=== PATIENT | male | born 1955 | race Caucasian/White ===

== ENCOUNTER → 2016-09-16 | Outpatient (CLI) | payer BC ==
--- NOTE | 2016-09-16 22:18 | CT ---
EXAMINATION TYPE: CT angio chest DATE OF EXAM: 09/16/2016 6:59 PM COMPARISON: 09/15/2015 HISTORY: 60-year-old male follow-up thoracic aneurysm TECHNIQUE: Contiguous axial scanning of the chest performed without and with IV Contrast, patient inj ected with 100 mL of Omnipaque 350. Coronal/sagittal MIP reconstructions performed. 3-D reconstructio ns generated on a dedicated independent workstation. CT DLP: 1107.3 mGycm Automated exposure control for dose reduction was used. FINDINGS: The heart is normal size without pericardial effusion. Redemonstrated ascending aortic aneurysm at 4.3 cm measured on both coronal and axial series. The pre vious finding described to represent an intimal flap along the medial ascending aortic wall is redemo nstrated and is suspected to represent wall motion artifact. The upper descending thoracic aorta rafa ins mildly aneurysmal at 3.3 cm and the lower descending thoracic aorta is ectatic at 2.7 cm. There i s variant direct takeoff of the nondominant left vertebral artery directly from the aortic arch. No thoracic lymphadenopathy by CT size criteria. Incidental mild bilateral gynecomastia. There is mild diffuse bronchial wall thickening demonstrated that could represent bronchitis or chron ic asthma. Some hazy atelectasis at the left base. No consolidation or pleural effusion. Tiny hiatal hernia. Stable couple cysts measuring up to 1.4 cm in the left hepatic dome. Dominant 4.9 cm cyst segment 4 left liver lobe. Additional smaller cysts are present and remain unchanged. Bones: No osseous destructive process. IMPRESSION: 1. STABLE ANEURYSMAL THORACIC AORTA (4.3 CM ASCENDING AND 3.3 CM UPPER DESCENDING). 2. THE PREVIOUS FINDING DESCRIBED TO REPRESENT AN INTIMAL FLAP ALONG THE MEDIAL ASCENDING AORTIC WALL IS REDEMONSTRATED BUT IS SUSPECTED TO REPRESENT WALL MOTION ARTIFACT. CONSID[facility].
== END | disposition home or self-care (01) ==
LOC: RADCTMAIN 18:06
PROVIDERS: ATTEND Thoracic Surgery (Cardiothoracic Vascular Surgery)
DX: I71.2 Thoracic aortic aneurysm, without rupture (principal)
CPT/HCPCS: 71275; Q9967

== ENCOUNTER → 2017-01-04 | Outpatient (CLI) | payer BC | END | disposition home or self-care (01) | LOC: LABWHC1 10:17 | PROVIDERS: ATTEND Internal Medicine Interventional Cardiology | DX: E03.9 Hypothyroidism, unspecified (principal) | CPT/HCPCS: 36415; 84439; 84443 ==

== ENCOUNTER → 2017-09-03 | Outpatient (CLI) | payer BC ==
[2017-09-03 17:48] LABS: HCT 44.7 % (39.0-53.0); HGB 15.3 gm/dL (13.0-17.5); MCH 30.5 pg (25.0-35.0); MCHC 34.2 g/dL (31.0-37.0); MCV 89.2 fL (80.0-100.0); Mean Platelet Volume 7.2; Platelet Count 213 k/uL (150-450); RBC 5.02 m/uL (4.30-5.90); RDW 12.4 % (11.5-15.5); WBC 6.8 k/uL (3.8-10.6)
[2017-09-03 17:58] LABS: Anion Gap 16 mmol/L; Blood Urea Nitrogen 18 mg/dL (9-20); Carbon Dioxide 30 mmol/L (22-30); Chloride 102 mmol/L (98-107); Potassium 4.6 mmol/L (3.5-5.1); Sodium 148 mmol/L (137-145)
== END | disposition home or self-care (01) ==
LOC: LABPAT 17:28
PROVIDERS: ATTEND Internal Medicine Interventional Cardiology
DX: Z01.812 Encounter for preprocedural laboratory examination (principal); R94.30 Abnormal result of cardiovascular function study, unspecified
CPT/HCPCS: 36415; 80051; 82565; 84520; 85027

== ENCOUNTER → 2017-09-16 | Outpatient (CLI) | payer BC ==
--- NOTE | 2017-09-16 09:15 | US ---
EXAMINATION TYPE: US abdomen complete DATE OF EXAM: 09/16/2017 COMPARISON: CT aorta 2014 CLINICAL HISTORY: Q44.6 CYSTIC DISEASE OF LIVER. Pt states liver cyst visualized on MRI done at [facility] ([facility] facility EXAM MEASUREMENTS: Liver Length: 11.0 cm Gallbladder Wall: 0.2 cm CBD: 0.8 cm Spleen: 9.2 cm Right Kidney: 12.3 x 5.6 x 5.4 cm Left Kidney: 10.8 x 6.2 x 5.7 cm Pancreas: Obscured by bowel gas Liver: Heterogeneous, difficult to penetrate, multiple cystic lesions scattered throughout, largest in left lobe= 5.8 x 4.3 x 5.7 cm, largest in right lobe= 2.8 x 1.9 x 2.9 cm Gallbladder: Possible 4mm polyp posterior wall. No shadowing mobile gallstones. Evidence for sonographic You's sign: No CBD: ?dilated Spleen: Visualized portions appeared wnl Right Kidney: wnl Left Kidney: wnl Upper IVC: wnl Abd Aorta: wnl The visualized liver is heterogeneously hyperechoic. Evaluation for focal masses is suboptimal due to the heterogeneity. A thin-walled 5.8 cm cyst in left hepatic lobe is redemonstrated not significantl y changed from prior CT. A smaller 2.8 cm thin-walled cyst right hepatic lobe is noted likely corresp onds to CT axial image 56 The intrahepatic portion of the IVC and visualized abdominal aorta are with in normal limits. There is no evidence of shadowing mobile cholelithiasis. Common bile duct is mini rome dilated. No suspicious intrahepatic biliary dilatation is seen. The pancreas is suboptimally e valuated on images saved secondary to shadowing from overlying bowel gas per technologist. The splee n is unremarkable. Kidneys are symmetric and free of hydronephrosis. No renal lesions are seen. IMPRESSION: Diffuse fatty infiltration of liver with simple thin-walled cysts in the liver redemonstr ated.
== END | disposition home or self-care (01) ==
LOC: RADUSWWP 08:09
PROVIDERS: ATTEND Internal Medicine
DX: K76.0 Fatty (change of) liver, not elsewhere classified (principal); K76.89 Other specified diseases of liver
CPT/HCPCS: 76700

== ENCOUNTER → 2017-09-19 | Day surgery (SDC) | payer BC ==
[2017-09-16 09:17] VITALS: BMI 30.9
[~2017-09-19] MED LIST: ALPRAZolam 0.25 MG TAB PO PRN; ALPRAZolam 0.5 MG TAB PO PRN; ASPIRIN 325 MG TAB PO STA; HEPARIN SODIUM 1,000 UN/ML (10ML VL) IV ONE; HEPARIN SODIUM 1,000 UN/ML (10ML VL) ONE; IOPAMIDOL-300 50ML BTL INJ ONE; IOPAMIDOL-370 100ML BTL INJ ONE; LIDOCAINE 2% INJ 20 MG/ML (20 ML MDV) ONE; LIDOCAINE 2% INJ 20 MG/ML SQ ONE; MIDAZOLAM 2 MG/2 ML VIAL ONE; NITROGLYCERIN SL TABS 0.4 MG TAB SUBLINGUAL PRN; SODIUM CHLORIDE 0.9% 1,000 ML in EMPTY BAG 1 BAG IV ONE; VERAPAMIL 2.5 MG/ML 2 ML AMP ONE; diphenhydrAMINE 50 MG/ML 1 ML VIAL IVP ONE; diphenhydrAMINE 50 MG/ML 1 ML VIAL ONE
[2017-09-19 10:20] VITALS: RESP 18; TEMP 98.2
[2017-09-19] MEDS: MIDAZOLAM 2 MG/2 ML VIAL IV ONE ×2 (11:46→12:09)
[2017-09-19] MEDS: VERAPAMIL SYRINGE (5 MG/10 ML) INTRAARTER ONE ×2 (11:51→12:21)
[2017-09-19 14:27] LABS: ALT 33 U/L (21-72); AST 28 U/L (17-59); Cholesterol 105 mg/dL (<200); Creatine Kinase 127 U/L (55-170); HDL Cholesterol 31 mg/dL (40-60); LDL Cholesterol,Calculated 54 mg/dL (0-99); Triglycerides 101 mg/dL (<150)
--- NOTE | 2017-09-19 15:02 | CC ---
CARDIAC CATHETERIZATION REPORT DATE OF SERVICE: 09/19/2017. PROCEDURE: Left heart catheterization, coronary angiography and left ventriculography. PERFORMED BY: Dr. Elli Ochoa. CLINICAL INFORMATION: Mr. 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 He has a 4.2 cm ascending aortic dilatation. This is being followed noninvasively. Because of his symptoms and abnormal stress test. He was advised coronary angiography. Risks, benefits, options, rationale were explained to the patient. PROCEDURE NOTE: Under local anesthesia and strict aseptic precautions, a 6-Prydeinig introducer was placed in the right radial artery. Using an Ultimate I catheter I performed selective coronary angiography of the left system. Using a right Justen catheter, I performed selective injection of the right coronary artery, but the injections were somewhat suboptimal. This was a nondominant vessel. I also tried with a Jaime catheter, but overall right coronary angiography was selective, but the tip appears to be a very limited distribution, nondominant vessel. An LV-gram was performed using a multipurpose B2 catheter with a hand injection. LV pressures were checked. The sheath was then taken out and a TR band applied as per protocol with good hemostasis. Saturation in the fingers of the right hand was 94%. Patient tolerated procedure well without complications. ANESTHESIA: Moderate conscious sedation time was 39 minutes. Patient was given Versed, Benadryl and his oxygen saturation, EKG and hemodynamics were monitored closely. CARDIAC CATHETERIZATION FINDINGS: The left ventricular end-diastolic pressure was 8-10 mmHg without any gradient across aortic valve. LEFT VENTRICULOGRAM: Hand ejection was performed. Ejection fraction appears to be 60% without any wall motion abnormalities. LEFT MAIN CORONARY ARTERY: A very short patent vessel that is free of significant disease that immediately bifurcates into LAD and circumflex. LEFT ANTERIOR DESCENDING CORONARY ARTERY: This vessel has a smooth narrowing of about 40%-45% in the midportion. Before this narrowing, there are small septal branches that come off. Then there is a large diagonal branch after this 45% narrowing and distal diagonal branch is free of significant disease. LAD runs all the way to the apex giving off several branches. No other significant disease is noted. Proximal LAD technically/mid LAD has about a 40% to 45% narrowing which is smooth and best seen in both caudal as well as cranial projections. LEFT POSTERIOR CIRCUMFLEX CORONARY ARTERY: Technically a very dominant vessel, gives off a first obtuse marginal, which is large, runs laterally, has no significant disease. It appears that the second obtuse marginal may be occluded. There appears to be a stump that seems to come off from the circumflex artery. Not much antegrade flow is noted but in multiple views, it does look like there may be a stump where a second obtuse marginal would have cross. The distal continuation of the circumflex continues as a PDA branch which is free of significant disease. A small PLV is also noted which is free of significant disease. PDA is large, disease-free and circumflex has no other significant disease other than probable occlusion of a second obtuse marginal/PLV branch. Stump is seen, but very little antegrade flow is noted. RIGHT CORONARY ARTERY: Technically a nondominant vessel, small in caliber and distribution, has a limited amount of myocardium being supplied by it, appears to be a nondominant vessel. FINAL IMPRESSION: This patient has a left dominant system, probable occlusion of the obtuse marginal which is a flush occlusion. This also runs in the PLV distribution. PDA is free of significant disease. No other disease in the circumflex system. Mid/proximal LAD has about a 45% smooth narrowing. Ejection fraction is normal with a hand injection. Filling pressures are normal. RECOMMENDATION: I am recommending aggressive medical therapy with risk factor modification. Will increase the atorvastatin to 20 mg daily and he will be discharged later on today and I will see him in the office next week. Aggressive medical therapy with risk factor modification is being advised and he also has ascending aortic dilatation. This will be addressed by CT angiography in the next couple of weeks. MMODL / IJN: [id number] /
--- NOTE | 2017-09-19 15:08 | LTR ---
DATE OF SERVICE: 09/19/2017 RE: KempJeremi Dear Dr. Marshall; Thank you for the opportuity to participate in the care of Mr. Jeremi Gupta. Please find enclosed my detailed cardiac cath report for your records. This gentleman probably has an occlusion of obtuse marginal, but no other critical lesions are noted. He has a moderate 40% to 45% LAD lesion and diffuse irregularities in the circumflex and nondominant RCA. No intervention is necessary. Aggressive medical therapy with LDL goal of under 70 and dietary discretion exercise is advised. I will see the patient in a week. Procedure was performed uneventfully. Thank you for your referral and please call for questions. With kindest regards. Sincerely yours, MD FILIBERTO Aburto / AMORN: [id number] /
[2017-09-19 18:36] VITALS: BP 104/58; PULSE 50
--- NOTE | 2017-09-20 14:26 | ECHOF ---
Referral Reason:R/O VALVE DX MEASUREMENTS -------- HEIGHT: 182.9 cm WEIGHT: 106.1 kg BP: 129/83 IVSd: 1.1 cm (0.6 - 1.1) LVIDd: 5.0 cm (3.9 - 5.3) LVPWd: 1.2 cm (0.6 - 1.1) IVSs: 1.5 cm LVIDs: 3.6 cm LVPWs: 1.5 cm LA Diam: 4.0 cm (2.7 - 3.8) LAESV Index (A-L): 25.27 ml/m Ao Diam: 3.7 cm (2.0 - 3.7) AV Cusp: 2.6 cm (1.5 - 2.6) LA Diam: 4.7 cm (2.7 - 3.8) MV EXCURSION: 17.961 mm (> 18.000) MV EF SLOPE: 77 mm/s (70 - 150) EPSS: 0.9 cm MV E Ramesh: 0.40 m/s MV DecT: 402 ms MV A Ramesh: 0.66 m/s MV E/A Ratio: 0.61 AR PHT: 859 ms RAP: 5.00 mmHg RVSP: 14.95 mmHg FINDINGS -------- Sinus rhythm. This was a technically good study. The left ventricular size is normal. Overall left ventricular systolic function is normal with, an EF between 55 - 60 %. The right ventricle is normal in size. The left atrial size is normal. Normal LA size by volume 22+/-6 ml/m2. The right atrial size is normal. Trace to mild aortic regurgitation. Mild mitral regurgitation is present. Mild tricuspid regurgitation present. There is no evidence of pulmonary hypertension. The right v entricular systolic pressure, as measured by Doppler, is 14.95mmHg. There is no pulmonic regurgitation present. The aortic root size is normal. There is no pericardial effusion. CONCLUSIONS -------- 1. The left ventricular size is normal. 2. Overall left ventricular systolic function is normal with, an EF between 55 - 60 %. 3. Trace to mild aortic regurgitation. 4. Mild mitral regurgitation is present. 5. Mild tricuspid regurgitation present. 6. There is no evidence of pulmonary hypertension. 7. The right ventricular systolic pressure, as measured by Doppler, is 14.95mmHg. 8. There is no pulmonic regurgitation present. 9. The aortic root size is normal. 10. There is no pericardial effusion. END POLISHER: Jamia Kilgore RDCS
== END ==
LOC: CATHCVL 09:13
PROVIDERS: ATTEND Internal Medicine Interventional Cardiology
DX: I25.10 Atherosclerotic heart disease of native coronary artery without angina pectoris (principal); I08.3 Combined rheumatic disorders of mitral, aortic and tricuspid valves; I10 Essential (primary) hypertension; I49.5 Sick sinus syndrome; Z82.49 Family history of ischemic heart disease and other diseases of the circulatory system; Z79.1 Long term (current) use of non-steroidal anti-inflammatories (NSAID); Z79.899 Other long term (current) drug therapy
CPT/HCPCS: 93306; 93458; 80061; 82550; 84450; 84460; C1894; J2001; J2250; J1200; J1644; Q9967 ×2

== ENCOUNTER → 2017-10-03 | Outpatient (CLI) | payer BC ==
--- NOTE | 2017-10-04 10:52 | CT ---
EXAMINATION TYPE: CT soft tissue neck w con DATE OF EXAM: 10/03/2017 7:10 PM COMPARISON: Prior CT neck 02/04/2013 HISTORY: Lt sided neck pain. Dysphagia, chronic sinusitis. Possible parotid stone CT DLP: 769.1 mGycm Automated exposure control for dose reduction was used. CONTRAST: CT scan of the neck is performed following with IV Contrast, patient injected with 100 mL of Isovue 3 00. Axial images are obtained, coronal and sagittal reformatted images are reviewed. FINDINGS: Airway: No gross abnormality seen. Parotid/submandibular glands: There is calcification present in the region of the submandibular gran uloma on the left measuring approximately 8-9 by 5 mm, additional calcification is present more perip herally measuring 2 to 3 mm seen best on axial images 69 and 68. Sublingual gland on the left is some what amorphous as compared to the right with some fatty replacement noted just deep to the mandible, there may be congenital anomaly and/or postinflammatory change with distortion of normal anatomy. Carotid/Vascular Structures: Ascending aorta is aneurysmal measuring approximately 4.2 cm, descending aorta is also ectatic at 3 cm. Four-vessel arch is present. The left vertebral artery is diminutive. Right vertebral artery is dominant. Super aortic branch vessels are patent. Osseous Structures: Degenerative disc changes are present within the visualized cervical spine as not ed on prior exam Other: Thyroid within normal limits. Dental amalgam causes streak artifact over portions of the exam IMPRESSION: Submandibular gland calcifications and distortion as described. Thoracic aortic aneurysm. Degenerative disc disease.
== END | disposition home or self-care (01) ==
LOC: RADCTMAIN 18:40
PROVIDERS: ATTEND Otolaryngology
DX: M50.30 Other cervical disc degeneration, unspecified cervical region (principal); R13.10 Dysphagia, unspecified
CPT/HCPCS: 70491; Q9967

== ENCOUNTER → 2018-06-23 | Outpatient (CLI) | payer OTHER | END | disposition home or self-care (01) | LOC: LABWHC1 11:07 | PROVIDERS: ATTEND Otolaryngology | DX: E83.52 Hypercalcemia (principal) | CPT/HCPCS: 36415; 82306; 82330 ==

== ENCOUNTER → 2018-12-11 | Outpatient (CLI) | payer OTHER ==
--- NOTE | 2018-12-11 08:06 | CT ---
EXAMINATION TYPE: CT angio chest DATE OF EXAM: 12/11/2018 COMPARISON: 09/16/2016 HISTORY: Thoracic Aortic aneurysm CT DLP: 542.8 mGycm CONTRAST: CTA thoracic aorta with 3-D reconstruction is performed and with IV Contrast, patient injected with 1 00 mL of Isovue 370. Contrast CTA of the thoracic aorta was performed from the lung apex through the upper abdomen. 3D re construction imaging obtained at a separate workstation. CT Chest: THORACIC AORTA: Ascending thoracic aortic aneurysm measuring 4.2 cm AP dimension versus 4.3 cm previo usly. Mild atheromatous changes seen. There is no evidence for dissection or periaortic collection. LUNGS: The lungs are clear and free of infiltrate or atelectasis. No pulmonary nodule or mass is det ected. No pleural effusion or CT evidence of interstitial lung disease. MEDIASTINUM: No evidence for mediastinal hematoma. The heart is not enlarged. No evidence for med iastinal mass or adenopathy. HILAR STRUCTURES: No evidence for mass. No hilar adenopathy is appreciated. OTHER: No significant abnormality. IMPRESSION- Stable ascending thoracic aortic aneurysm.
== END | disposition home or self-care (01) ==
LOC: RADCTMAIN 06:58
PROVIDERS: ATTEND Internal Medicine Interventional Cardiology
DX: I71.2 Thoracic aortic aneurysm, without rupture (principal)
CPT/HCPCS: 71275; Q9967

== ENCOUNTER → 2019-12-15 | Outpatient (CLI) | payer OTHER ==
--- NOTE | 2019-12-15 18:00 | CT ---
EXAMINATION TYPE: CT angio chest DATE OF EXAM: 12/15/2019 5:19 PM COMPARISON: CTA chest 12/01/2018 HISTORY: f/u aneurysm CT DLP: 622.5 mGycm Automated exposure control for dose reduction was used. CONTRAST: CTA scan of the thorax is performed with IV Contrast, patient injected with 100 mL of Isovue 370, tho racic aortic aneurysm protocol. 3D reconstructed images are created on an independent workstation an d reviewed.. FINDINGS: LUNGS: The lungs are grossly clear, there is no concerning parenchymal mass or nodule identified. Th ere is no pleural effusion or pneumothorax seen. The tracheobronchial tree is patent. MEDIASTINUM: There is satisfactory enhancement of the thoracic aorta. There is redemonstrated 4.2 cm ascending thoracic aortic aneurysm. No evidence of thoracic aortic dissection cardiac size normal. No pericardial effusion. No evidence of mediastinal or hilar adenopathy. OTHER: Multiple hepatic simple cysts redemonstrated. No adrenal adenoma. IMPRESSION: UNCHANGED 4.2 CM ASCENDING THORACIC AORTIC ANEURYSM.
== END | disposition home or self-care (01) ==
LOC: RADCTMAIN 16:17
PROVIDERS: ATTEND Internal Medicine Interventional Cardiology
DX: I71.2 Thoracic aortic aneurysm, without rupture (principal)
CPT/HCPCS: 71275

== ENCOUNTER → 2021-05-23 | Outpatient (CLI) | payer MEDICARE, OTHER ==
--- NOTE | 2021-05-23 12:39 | CT ---
CT CHEST FOR PULMONARY EMBOLISM. EXAMINATION TYPE: CT angio chest DATE OF EXAM: 05/23/2021 INDICATION: thoracic aortic aneurysm, w/o rupture CT DLP: 937.6 mGycm, Automated exposure control for dose reduction was used. CONTRAST: Patient injected with 100 mL of Isovue 370. COMPARISON: 12/15/2019 TECHNIQUE: CT of the chest is performed on a spiral scan at 2 mm thick sections. Study is performed with intravenous contrast timed for evaluation for thoracic aneurysm.. This will limit additional po rtions of the evaluation. 3-D MIP images reconstructed by the technologist are reviewed on the compu ter in the coronal and sagittal planes. FINDINGS: No persistent filling defects are evident to suggest an acute pulmonary embolism. No mediastinal or hilar adenopathy enlarged by CT criteria is evident. The ascending aorta diameter at the level of the main pulmonary artery is 4.3 cm. The main pulmonary artery diameter at the bifur cation is 2.8 cm. There is an ascending thoracic aortic aneurysm measuring 4.3 cm of the main pulmona ry artery. The aorta otherwise tapers throughout its visualized course. This appears stable within me asurement error from comparison study. There is a tiny posterior left midlung density measuring 0.4 cm. Series 7 image 26. Lung windows othe rwise appear clear. Limited CT section through the upper abdomen. Hepatic cysts within the medial right lobe liver are pr esent IMPRESSIONS: 1. Stable appearance of ascending thoracic aorta with a measurement of 4.3 cm. 2. Tiny posterior left lung density is nonspecific but is a change from comparison. Follow-up exam in 6 months is recommended.
== END | disposition home or self-care (01) ==
LOC: RADCTMAIN 09:18
PROVIDERS: ATTEND Internal Medicine Interventional Cardiology
DX: I71.2 Thoracic aortic aneurysm, without rupture (principal); J98.4 Other disorders of lung
CPT/HCPCS: 82565; 84520; 71275; 36415; Q9967

== ENCOUNTER → 2022-04-30 | Outpatient (CLI) | payer MEDICARE, OTHER ==
[2022-04-30 12:52] LABS: African American GFR (CKD) >90 (>60 ml/min/1.73 sqM); Blood Urea Nitrogen 20 mg/dL (9-20); Non-African American GFR(CKD) 88 (>60 ml/min/1.73 sqM)
--- NOTE | 2022-04-30 14:24 | CT ---
EXAMINATION TYPE: CT angio chest DATE OF EXAM: 04/30/2022 1:56 PM COMPARISON: HISTORY: Thoracic Aortic Aneurysm CT DLP: 1175.6 mGycm Automated exposure control for dose reduction was used. CONTRAST: CTA scan of the thorax is performed without and with IV Contrast, patient injected with 100 mL of Iso jj 370, pulmonary embolism protocol. . FINDINGS: LUNGS: The lungs are grossly clear, there is no concerning parenchymal mass or nodule identified. T here is no pleural effusion or pneumothorax seen. The tracheobronchial tree is patent. Bilateral sub segmental changes are most typical of atelectasis. This includes previously noted posterior lung dens ity. MEDIASTINUM: There is satisfactory enhancement of the pulmonary artery and its branches, there is no CT evidence for pulmonary embolism. There are no greater than 1 cm hilar or mediastinal lymph nodes. No pericardial effusion is seen. The ascending aorta diameter at the level of the main pulmonary artery is 4.6 cm and previously measu red 4.3 cm. The main pulmonary artery diameter at the bifurcation is 2.8 cm. There is an ascending th oracic aortic aneurysm measuring 4.3 cm of the main pulmonary artery. The aorta otherwise tapers thro ughout its visualized course. Heart mildly enlarged. OTHER: There are multiple hypodensities again noted within the liver which appear to be stable relat felicita hypertrophic and degenerative changes of the spine. To the prior exam and most likely related to cysts. Visualized abdominal aorta normal caliber. IMPRESSION: 1. There is a 4.6 cm ascending aortic aneurysm previously measuring 4.3 cm. Correlate clinically. 2. Mild coronary artery calcification
== END | disposition home or self-care (01) ==
LOC: RADCTMAIN 12:19
PROVIDERS: ATTEND Internal Medicine Interventional Cardiology
DX: I71.21 Aneurysm of the ascending aorta, without rupture (principal); I25.10 Atherosclerotic heart disease of native coronary artery without angina pectoris
CPT/HCPCS: 82565; 84520; 71275; 36415; Q9967

== ENCOUNTER → 2023-04-30 | Outpatient (CLI) | payer MEDICARE ==
[2023-04-30 12:46] LABS: African American GFR (CKD) >90 (>60 ml/min/1.73 sqM); Blood Urea Nitrogen 17 mg/dL (9-20); Non-African American GFR(CKD) >90 (>60 ml/min/1.73 sqM)
--- NOTE | 2023-04-30 14:57 | CT ---
EXAMINATION TYPE: CT angio chest DATE OF EXAM: 04/30/2023 COMPARISON: 04/30/2022 HISTORY: f/u aneurysm CT DLP: 907 mGycm CONTRAST: CTA thoracic aorta with 3-D reconstruction is performed and without and with IV Contrast, patient inj ected with 100ml mL of Isovue 370. Contrast CTA of the thoracic aorta was performed from the lung apex through the upper abdomen. 3D re construction imaging obtained at a separate workstation. CT Chest: THORACIC AORTA: Ascending thoracic aortic aneurysm measuring 4.5 cm AP dimension versus 4.6 cm previo usly. Mild atheromatous changes seen. There is no evidence for dissection or periaortic collection. LUNGS: The lungs are clear and free of infiltrate or atelectasis. No pulmonary nodule or mass is det ected. No pleural effusion or CT evidence of interstitial lung disease. MEDIASTINUM: No evidence for mediastinal hematoma. The heart is not enlarged. No evidence for med iastinal mass or adenopathy. HILAR STRUCTURES: No evidence for mass. No hilar adenopathy is appreciated. OTHER: No significant abnormality. IMPRESSION- 1. Essentially stable ascending thoracic aortic aneurysm.
== END | disposition home or self-care (01) ==
LOC: RADCTMAIN 11:59
PROVIDERS: ATTEND Thoracic Surgery (Cardiothoracic Vascular Surgery)
DX: I71.21 Aneurysm of the ascending aorta, without rupture (principal)
CPT/HCPCS: 82565; 84520; 71275; 36415; Q9967

== ENCOUNTER → 2024-09-23 | Outpatient (CLI) | payer MEDICARE ==
[2024-09-23 13:44] LABS: African American GFR (CKD) >90 (>60 ml/min/1.73 sqM); Blood Urea Nitrogen 19 mg/dL (9-20); Non-African American GFR(CKD) >90 (>60 ml/min/1.73 sqM)
--- NOTE | 2024-09-23 15:19 | CT ---
EXAMINATION TYPE: CT angio chest DATE OF EXAM: 09/23/2024 COMPARISON: 04/30/2023 CLINICAL INDICATION: Male, 68 years old with history of thoracic aneurysm; PHH, Thoracic aortic aneur ysm TECHNIQUE: CTA scan of the thorax is performed with IV Contrast, patient injected with 100 ml mL of Isovue 370, pulmonary embolism protocol. MIP images are created and reviewed. CT DLP: 1121.[address] CTDI: mGy Automated exposure control for dose reduction was used. FINDINGS: The ascending thoracic aorta is 4.3 cm. The aortic root is 4.2 cm. There is no mediastinal, hilar or axillary adenopathy. There is a 2 mm nodule in the right middle lobe but no suspicious lung masses or nodules. There is no airspace consolidation or abnormal interstitial density. There is no pleural effusion or pneumothorax. Limited scanning through the upper abdomen reveals stable hepatic cysts. There are no focal osseous lesions. IMPRESSION: 1. 4.3 cm dilatation of the ascending thoracic aorta and 4.2 cm dilatation of the aortic root. 2. No acute cardiopulmonary disease. [facility], , 09/23/2024 3:17 PM
== END | disposition home or self-care (01) ==
LOC: RADCTMAIN 12:54
PROVIDERS: ATTEND Internal Medicine Interventional Cardiology
DX: I77.810 Thoracic aortic ectasia (principal)
CPT/HCPCS: 82565; 84520; 71275; 36415; Q9967